=== PATIENT | female | born 1955 | race Two or more races ===

== ENCOUNTER 2025-04-24 11:53 | Emergency (ER) | payer MEDICAID ==
[~2025-04-24] VITALS: Ht 162.6 cm; Wt 63.0 kg
[2025-04-24 12:00] VITALS: TEMP 36.8; O2SAT 99
[2025-04-24] MEDS ORDERED: CEPH500C2 MT (15:02)
[2025-04-24] MEDS ORDERED: BO1 TP (15:02)
[2025-04-24 15:53] VITALS: BP 109/73; PULSE 57; RESP 16; O2SAT 99
== END 2025-04-24 16:00 | disposition home or self-care (01) ==
LOC: ER 11:53
DX: L97.529 Non-pressure chronic ulcer of other part of left foot with unspecified severity (principal); Z98.890 Other specified postprocedural states; Z79.899 Other long term (current) drug therapy
CPT/HCPCS: 99283